=== PATIENT | female | born 1975 | race Asian ===

== ENCOUNTER 2024-01-19 11:32 | Outpatient (CLI) | payer OTHER ==
[~2024-01-19 11:32] MED LIST: MEDROLPACK PO; NABUMETONE750 MG PO; TORADOL60 MG IM
== END 2024-01-19 11:38 | disposition home or self-care (01) ==
LOC: RAD 11:32
PROVIDERS: ATTEND Physical Medicine & Rehabilitation
DX: M25.572 Pain in left ankle and joints of left foot (principal)